=== PATIENT | female | born 2000 | race Caucasian/White ===

== ENCOUNTER 2022-12-29 18:50 | Emergency (ER) | payer MEDICAID ==
[~2022-12-29] VITALS: Ht 162.6 cm; Wt 77.1 kg
[2022-12-29 19:06] VITALS: BP_SYST 129; PULSE 88; RESP 20; TEMP 98.3; O2SAT 98
[2022-12-29] MEDS ORDERED: KETOROLAC TROMETHAMINE 30 MG VIAL IM ONE (19:30)
[2022-12-29] MEDS ORDERED: LIDOCAINE 2%, 20 ML MDV INJ ONE (21:00)
[2022-12-29] MEDS ORDERED: BACI15OI13 TP (21:56)
[2022-12-29] MEDS ORDERED: CEPH-548 PO (21:56)
[2022-12-29] MEDS ORDERED: cephALEXin 500 MG CAPSULE PO ONE (22:00)
[2022-12-29] MEDS ORDERED: BACITRACIN 1 GM OINT TP ONE (22:03)
[2022-12-29 22:05] VITALS: BP_SYST 116; PULSE 65; RESP 20; TEMP 97.7; O2SAT 97
== END 2022-12-29 22:05 | disposition home or self-care (01) ==
LOC: SED 18:50
DX: S61.411A Laceration without foreign body of right hand, initial encounter (principal); Z79.899 Other long term (current) drug therapy; Y04.0XXA Assault by unarmed brawl or fight, initial encounter; Y93.89 Activity, other specified; Y92.89 Other specified places as the place of occurrence of the external cause; Y99.8 Other external cause status
CPT/HCPCS: 99283; 73130; 81025; 12001; 96372; J1885; J2001

== ENCOUNTER 2023-01-07 18:26 | Emergency (ER) | payer MEDICAID ==
[~2023-01-07] VITALS: Ht 162.6 cm; Wt 77.1 kg
[~2023-01-07 18:26] MED LIST: BACI15OI13 TP; CEPH-548 PO
[2023-01-07 18:27] VITALS: BP_SYST 126; PULSE 102; RESP 18; TEMP 98.2; O2SAT 98
[2023-01-07 19:08] VITALS: BP_SYST 121; PULSE 99; RESP 20; TEMP 98; O2SAT 100
== END 2023-01-07 19:08 | disposition home or self-care (01) ==
LOC: SED 18:26
DX: Z48.02 Encounter for removal of sutures (principal); Z79.899 Other long term (current) drug therapy
CPT/HCPCS: 99281